=== PATIENT | male | born 1955 | race Caucasian/White ===

== ENCOUNTER 2017-04-07 16:58 | Observation (INO) | payer BC, SELFPAY ==
[~2017-04-07] VITALS: Ht 182.9 cm; Wt 61.8 kg
[2017-04-07] MEDS ORDERED: MIDAZOLAM INJ 2 MG/2 ML VIAL (J2250) IV STA (18:17)
--- NOTE | 2017-04-07 18:56 | REP ---
AP PORTABLE CHEST: 04/07/2017. Clinical history: Altered mental status. Findings: No prior study. The lung mack are adequately inflated. CP angles are sharply defined. There is no dense consolidation, lateral pleural thickening, apical scarring or pneumothorax. Some minor basilar fibrotic changes are seen. The heart, mediastinal and hilar contours are normal. There is some venous hypertension without tegan edema or definite interstitial edema. Spine shows minor degenerative changes. No free air under the diaphragm. Impression: 1. Some minor basilar fibrotic change without acute infiltrate, effusion, cardiomegaly or tegan edema. 2. Some mild pulmonary venous hypertension without interstitial edema noted. Signed by Papo Gonzalez MD 04/07/2017 08:15 P
--- NOTE | 2017-04-07 19:20 | REPUSA ---
CLINICAL HISTORY: AMS. TECHNIQUE: Multiple axial CT images were obtained through the brain without IV contrast material. COMMENTS: There is normal configuration of sella turcica. There are no intra or extra-axial collections. There is no mass effect or midline shift. There is no evidence of hematoma formation. No hydrocephalus is p resent. The ventricles are symmetrical. No abnormal calcifications are present. There is diffuse age-appropriate cerebellar and cerebral atrophy with proportionally dilated ventricl es and cortical sulci. There are bilateral periventricular and subcortical white matter hypolucencies compatible with mild c hronic microvascular disease. Otherwise, no significant focal abnormalities are seen either in the posterior fossa or supratentoria l compartment. IMPRESSION: 1. Age-appropriate cerebellar and cerebral atrophy. 2. Mild chronic microvascular disease. 3. No evidence of acute intracranial pathology. Thank you for your kind referral of this patient.
[2017-04-07 19:38] LABS: METHADONE URINE NEGATIVE (NEGATIVE)
[2017-04-07 19:43] LABS: BASO % 0.2 % (0.0-1.0); EOS % 0.1 % (0.0-3.0); IMMATURE GRANULOCYTE % 0.3 % (0-0); LYMPH % 8.2 % (24.0-44.0); MEAN CORPUSCULAR HGB CONC 33.3 g/dl (32.0-36.5); MEAN CORPUSCULAR VOLUME 89.9 fl (80.0-96.0); MONO # 0.7 10^3/uL (0.0-0.8); MONO % 5.2 % (0.0-5.0); NEUTROPHILS # 10.9 10^3/uL (1.8-7.7); PLATELET COUNT, AUTOMATED 201 10^3/uL (150-450); RED CELL DISTRIBUTION WIDTH 13.4 % (11.5-14.5); WHITE BLOOD COUNT 12.6 10^3/uL (4.0-10.0)
[2017-04-07 20:21] LABS: ALBUMIN 3.9 GM/DL (3.2-5.2); ALBUMIN/GLOBULIN RATIO 1.26 (1.00-1.93); ALKALINE PHOSPHATASE 70 U/L (45-117); ALT/SGPT 24 U/L (12-78); ANION GAP 4 MEQ/L (8-16); AST/SGOT 26 U/L (15-37); BILIRUBIN,DIRECT 0.2 MG/DL (0.0-0.2); BILIRUBIN,TOTAL 0.4 MG/DL (0.2-1.0); BLOOD UREA NITROGEN 19 MG/DL (7-18); CALCIUM LEVEL 8.7 MG/DL (8.8-10.2); CARBON DIOXIDE LEVEL 31 MEQ/L (21-32); CHLORIDE LEVEL 106 MEQ/L (98-107); GLOMERULAR FILTRATION RATE > 60.0 (>49); GLUCOSE, FASTING 91 MG/DL (80-110); POTASSIUM SERUM 4.1 MEQ/L (3.5-5.1); SODIUM LEVEL 141 MEQ/L (136-145)
[2017-04-07] MEDS ORDERED: INSUR SC (21:24)
[2017-04-07] MEDS ORDERED: INSUN SC (21:24)
[2017-04-07] MEDS ORDERED: PATIENT COMMENT (21:24)
[2017-04-07] MEDS ORDERED: GLUCAGON FOR INJ 1 MG VIAL (J1610) SC PRN (21:45)
[2017-04-07] MEDS ORDERED: DEXTROSE 50% 50 ML SYRINGE IV PRN (21:45)
[2017-04-07] MEDS ORDERED: GLUCOSE 4 GM CHEW TABLET PO PRN (21:45)
[2017-04-07] MEDS ORDERED: D5W/0.45% SODIUM CHLORIDE 1,000 ML IV SCH (21:45)
[2017-04-07] MEDS ORDERED: ACETAMINOPHEN TAB 650MG DOSE (2X325MG) PO PRN (21:45)
[2017-04-07] MEDS ORDERED: ONDANSETRON 4MG/2ML VIAL (J2405) IV PRN (21:45)
[2017-04-07] MEDS ORDERED: D5W/0.45% SODIUM CHLORIDE 1,500 ML IV SCH (22:00)
--- NOTE | 2017-04-07 23:36 | HPEPDOC ---
General Date of Admission Apr 07, 2017 at 21:45 Attending Physician: ELKE NICHOLE MD Chief Complaint The patient is a 61-year-old male admitted with a reason for visit of Hypoglycemia. Source: RN/, EMS History of Present Illness 61-year-old male with past medical history of diabetes mellitus on insulin was brought to the ER after he was found unresponsive at his residence. The patient' s blood sugar level was found to be 19 at the scene. The patient subsequently received glucagon and dextrose, and was brought to the ER for further evaluation. Upon evaluation, the patient's recollection of events was limited. The patient states that he took his insulin, and did not have his lunch that afternoon. However, the patient remains confused and the extent of this history was obtained from EMS personnel and the ER physician. The patient was unable to tell us what his dose of insulin is regularly. He denies having any friends or family members who he could contact. At this time, patient denies any acute complaints of fevers, chills, chest pain, palpitations, abdominal pain, suicidal /homicidal ideations, or any nausea/vomiting/diarrhea. Given the patient's presentation of hypoglycemia, and unclear history. We will admit the patient to the hospitalist service for further delineation of the patient's medication regimen/history by calling his pharmacy in the a.m. Home Medications Scheduled Insulin Human NPH (Novolin N) 1 Ml Susp, Unknown Dose SC BID, (Reported) Insulin Human Regular (Novolin R) 1 Ml Soln, 1 DOSE SC AC, (Reported) PER SLIDING SCALE Miscellaneous Medications [Patient Comment] , (Reported) PATIENT STATES THAT HE'S ON THE TWO DIFFERENT INSULINS BUT WASN'T MAKING SENSE ON THE DOSAGE AND FREQUENCY. GOING TO CONFIRM BY CALLING THE PHARMACY IN THE MORNING. Allergies Coded Allergies: No Known Allergies (Unverified , 04/07/17) Past Medical History Medical History Full medical history unclear at this time given the patient's alteration in mental status. Surgical History Unable to reliably obtain given the patient's clinical presentation Family History Unable to reliably obtain given the patient's clinical presentation Social History Unable to reliably obtain given the patient's clinical presentation Review of Symptoms Other systems Unable to reliably obtain given the patient's clinical presentation Physical Examination General Exam: Positive: No Acute Distress, Other (patient appears disheveled, and malnourished with bitemporal wasting noted. The patient is oriented to person, and year but not place or situation.) ENT Exam: Positive: Atraumatic Neck Exam: Negative: JVD Chest Exam: Positive: Clear to auscultation, Normal air movement Heart Exam: Positive: Rate Normal, Normal S1, Normal S2 Telemetry: Positive: Sinus Abdomen Exam: Positive: Soft, Negative: Tenderness Extremity Exam: Negative: Tenderness, Swelling Vital Signs Vital Signs Date Time Temp Pulse Resp B/P (MAP) Pulse Ox O2 Delivery O2 Flow Rate FiO2 04/07/17 22:15 93 154/72 (99) 04/07/17 20:45 95 04/07/17 20:30 16 04/07/17 17:06 99.0 Room Air Laboratory Data Labs 24H Laboratory Tests 2 04/07/17 18:41: Urine Appearance CLEAR, Urine Color YELLOW, Urine pH 6.0, Urine Specific [place] 1.017, Urine Protein NEGATIVE, Urine Glucose (UA) NEGATIVE, Urine Ketones NEGATIVE, Urine Urobilinogen 2.0H, Urine Bilirubin NEGATIVE, Urine Leukocyte Esterase NEGATIVE, Urine Blood NEGATIVE, Urine Nitrite NEGATIVE, Urine WBC (Auto) 0, Urine RBC (Auto) 1, Urine Hyaline Casts (Auto) 0, Urine Bacteria (Auto) NEGATIVE, Urine Squamous Epithelial Cells 0, Urine Mucus (Auto) SMALL, Urine Sperm (Auto) , Urine Amphetamines Screen NEGATIVE, Urine Benzodiazepines Screen NEGATIVE, Urine Opiates Screen NEGATIVE, Urine Methadone Screen NEGATIVE, Urine Barbiturates Screen NEGATIVE, Urine Phencyclidine Screen NEGATIVE, Urine Cocaine Metabolite Screen NEGATIVE, Urine Cannabinoids Screen NEGATIVE 04/07/17 19:29: Lactic Acid Level 2.4*H, Ammonia 26 04/07/17 19:30: Immature Granulocyte % (Auto) 0.3H, White Blood Count 12.6H, Red Blood Count 4.67, Hemoglobin 14.0, Hematocrit 42.0, Mean Corpuscular Volume 89.9, Mean Corpuscular Hemoglobin 30.0, Mean Corpuscular Hemoglobin Concent 33.3, Red Cell Distribution Width 13.4, Platelet Count 201, Neutrophils (%) (Auto) 86.0H, Lymphocytes (%) (Auto) 8.2L, Monocytes (%) (Auto) 5.2H, Eosinophils (%) (Auto) 0.1, Basophils (%) (Auto) 0.2, Neutrophils # (Auto) 10.9H, Lymphocytes # (Auto) 1.0L, Monocytes # (Auto) 0.7, Eosinophils # (Auto) 0.0, Basophils # (Auto) 0.0, Immature Granulocyte # (Auto) 0.0, Nucleated Red Blood Cells % (auto) 0.0, Anion Gap 4L, Glomerular Filtration Rate > 60.0, Calcium Level 8.7L, Aspartate Amino Transf (AST/SGOT) 26, Alanine Aminotransferase (ALT/SGPT) 24, Alkaline Phosphatase 70, Total Bilirubin 0.4, Direct Bilirubin 0.2, Total Creatine Kinase 220, Creatine Kinase MB 5.0H, Creatine Kinase MB Relative Index 2.27, Troponin I < 0.02, Total Protein 7.0, Albumin 3.9, Albumin/Globulin Ratio 1.26, Thyroid Stimulating Hormone (TSH) 0.730, Salicylates Level 3.4L, Acetaminophen Level < 2.0L, Ethyl Alcohol Level < 0.003 CBC/BMP Laboratory Tests 04/07/17 19:30 Red Blood Count 4.67, Mean Corpuscular Volume 89.9, Mean Corpuscular Hemoglobin 30.0, Mean Corpuscular Hemoglobin Concent 33.3, Red Cell Distribution Width 13.4 , Neutrophils (%) (Auto) 86.0 H, Lymphocytes (%) (Auto) 8.2 L, Monocytes (%) ( Auto) 5.2 H, Eosinophils (%) (Auto) 0.1, Basophils (%) (Auto) 0.2, Neutrophils # (Auto) 10.9 H, Lymphocytes # (Auto) 1.0 L, Monocytes # (Auto) 0.7, Eosinophils # (Auto) 0.0, Basophils # (Auto) 0.0 Microbiology Microbiology 04/07/17 Blood Culture, Received Pending 04/07/17 Blood Culture, Received Pending 04/07/17 Urine Culture, Received Pending Plan / VTE VTE Prophylaxis Ordered?: Yes Plan Plan Episode of Hypoglycemia Likely 2/2 Decreased PO Intake Repeat BSR in the ER 141 We will keep the patient on IV D5W/0.45 NaCl gtt and check blood sugar levels serially Pharmacy staff will call the patient's pharmacy ([facility] in [place], [place]) for further delineation of the patient's medication regimen/history. Alteration in mental status likely 2/[address] head negative No focal neurological deficits appreciated on physical exam. Ammonia and TSH levels within normal limits U Tox negative We will continue to monitor the patient's clinical condition. Lactic acidosis likely 2/2 Above IV fluid hydration ordered DVT prophylaxis Lovenox subcutaneous The patient will be admitted under the service of Dr. Nichole, who will begin to follow the patient on 04/08/17 at 7 AM. Update 3:30 am--Called by the bedside nurse (Naomi Lopez RN) as the patient is requesting to go home AGAINST MEDICAL ADVICE. She reports that the patient's mentation has cleared and he is awake, alert, oriented x 4 following IV fluid hydration with dextrose. I did go back to the patient's bedside to reassess his neurological status and clinical condition. Upon my reevaluation, the patient is awake, alert, oriented 4, and he is answering all questions appropriately regarding his current situation, and the events that led up to his hospitalization. He is fully intact neurologically on exam, and does not display any focal deficits. He reports that his blood sugar level was low because he did not get to have a meal as he works 12 hour shifts. He was able to reiterate his insulin regimen to me, and notes that he will make the discussed adjustments to prevent a future occurrence. He reports he follows with PCP Dr. Hernandez in [place], [place]. At this time, the patient is completely capable of making medical decisions as his alteration in mental status 2/2 Hypoglycemia has resolved following medical treatment. The patient was evaluated with his bedside nurse, Naomi Lopez who was present for the conversation. I did advise the patient to stay in the hospital for further monitoring of his blood glucose levels, and clinical condition. However, the patient states that he would like to leave AGAINST MEDICAL ADVICE. He has verbalized understanding that the risks associated with leaving AGAINST MEDICAL ADVICE include recurrence of hypoglycemic episode, and possible . The benefits of remaining hospitalized include continued clinical monitoring as noted above. I have advised the patient to follow-up with his primary care physician in the next 24-48 hours. In addition, the patient has been advised to return to the ER for worsening of symptoms, or any acute emergencies. ROSY QUIROGA MD Apr 07, 2017 23:36
[2017-04-08] MEDS ORDERED: LORazepam 2 MG/ML VIAL (J2060) IV PRN (02:30)
--- NOTE | 2017-04-08 02:32 | IPNPDOC ---
Text Note Date of Service The patient was seen on 04/08/17. NOTE Evening resident and attending were called that patient was requesting to leave AGAINST MEDICAL ADVICE. The patient's clinical and neurological status will be reassessed following medical treatment as ordered to evaluate whether the the patient's mentation has improved, and if he is able to display the capacity to make medical decisions. Patient has been discussed with Dr. Quiroga. GME ATTESTATION My preceptor for this patient encounter was physically present in the building during the encounter and was fully available. As needed, all aspects of the patient interview, examination, medical decision making process, and medical care plan development were reviewed and approved by the preceptor. Preceptor is aware and concurs with the plan as stated in the body of this note and will attest to such by his/her cosignature. VS,Fishbone, I+O VS, Fishbone, I+O Laboratory Tests 04/07/17 19:30 Red Blood Count 4.67, Mean Corpuscular Volume 89.9, Mean Corpuscular Hemoglobin 30.0, Mean Corpuscular Hemoglobin Concent 33.3, Red Cell Distribution Width 13.4 , Neutrophils (%) (Auto) 86.0 H, Lymphocytes (%) (Auto) 8.2 L, Monocytes (%) ( Auto) 5.2 H, Eosinophils (%) (Auto) 0.1, Basophils (%) (Auto) 0.2, Neutrophils # (Auto) 10.9 H, Lymphocytes # (Auto) 1.0 L, Monocytes # (Auto) 0.7, Eosinophils # (Auto) 0.0, Basophils # (Auto) 0.0 Vital Signs Date Time Temp Pulse Resp B/P (MAP) Pulse Ox O2 Delivery O2 Flow Rate FiO2 04/08/17 02:15 80 156/74 (101) 95 04/08/17 01:30 98.0 16 Room Air BOBBI MARTINEZ DO Apr 08, 2017 02:31 ROSY QUIROGA MD Apr 08, 2017 03:42
[2017-04-08 03:30] VITALS: BP 145/71
--- NOTE | 2017-04-08 07:12 | ECGEPIP ---
Stationary ECG Study [facility] - ED Test Date: 2017-04-07 Pat Name: MADELYN BOSCH Department: Room: [place] [address] Gender: M Record Keeper: danita : 1955 Requested By: XAVI Day Order Number: [id number] Reading MD: Ramana Myrick Measurements Intervals [place] Rate: 92 P: 61 [place]: 160 QRS: -3 QRSD: 113 T: 68 QT: 378 QTc: 468 Interpretive Statements SINUS RHYTHM WITH OCCASIONAL VENTRICULAR PREMATURE COMPLEXES POSSIBLE LEFT ATRIAL ENLARGEMENT INCOMPLETE RIGHT BUNDLE BRANCH BLOCK NO PRIORS Electronically Signed On 04-08-2017 7:12:07 EDT by Ramana Myrick
[2017-04-08] MEDS ORDERED: ENOXAPARIN 30 MG/0.3 ML SYR (J1650) SC SCH (09:00)
== END 2017-04-08 04:43 | disposition left against medical advice (07) ==
LOC: M ED 16:58 → M ED INP 21:45
PROVIDERS: ADMIT Internal Medicine; ATTEND Internal Medicine
DX: E16.2 Hypoglycemia, unspecified (principal); Z53.21 Procedure and treatment not carried out due to patient leaving prior to being seen by health care provider; E87.2 Acidosis; E11.9 Type 2 diabetes mellitus without complications; Z79.4 Long term (current) use of insulin
CPT/HCPCS: 36415; 70450; 71010; 80048; 80076; 80307; 81001; 82140; 82550; 82553; 83605; 84443; 85025; 87040; 87086; 93005; 93041; 94760; 99285; G0480